=== PATIENT | female | born 2000 ===

== ENCOUNTER 2020-01-10 19:19 | Emergency (ER) | payer OTHER, SELFPAY ==
[2020-01-10 20:11] VITALS: BP 113/66; PULSE 78; RESP 18; TEMP 36.7; O2SAT 100; BMI 24.7
== END 2020-01-11 01:01 | disposition left against medical advice (07) ==
LOC: HO.ED 01-11 00:48
PROVIDERS: Emergency Provider Emergency Medicine; PCP Pediatrics
DX: R10.9 Unspecified abdominal pain (principal)
CPT/HCPCS: 99282; 99283

== ENCOUNTER 2020-04-13 19:50 | Emergency (ER) | payer OTHER, SELFPAY ==
[2020-04-13 20:28] VITALS: BP 124/78; PULSE 76; RESP 16; TEMP 37.2; O2SAT 99; BMI 35.6
[2020-04-13 21:13] LABS: Glucose Urine UA NEG (NEG); Leukocyte Esterase Urine NEG (NEG); Nitrite Urine NEG (NEG); PH 5.5 (5.0-8.0); Specific Gravity - Urine >= 1.030 (1.005-1.025); Urine Blood 3+ (NEG); Urine Ketones NEG (NEG); Urine Protein NEG (NEG-TRACE)
[2020-04-13 21:15] LABS: Appearance Urine CLEAR; Color Urine YELLOW; UPreg QC Valid YES; Urine Pregnancy NEGATIVE (NEGATIVE)
[2020-04-13 21:20] LABS: Bacteria Urine TRACE /LPF; Squamous Epithelial Cell Urine 1+ /LPF; WBC Urine 0 /HPF (0-4)
--- NOTE | 2020-04-13 22:58 | ED.FEMALEGU ---
HPI - Female Genitourinary General Chief complaint: Abdominal Pain Stated complaint: abd pain Time Seen by Provider: 04/13/20 22:52 Source: patient Mode of arrival: ambulatory Limitations: no limitations History of Present Illness HPI Narrative: 19 yo female has had 3 days of lower abdominal cramping, came off OCPs 4 months ago has been irregular since but had significant bleeding on Friday and now has lower abdominal cramping some spotting - this has never happened before, she is not sure if she is , c/o some headaches and low grade temps as well MD elicited complaint: vaginal bleeding and pelvic pain Pertinent past history: other (took herself off OCPs 4 months ago) Onset (ago): day(s) (3) Location of symptoms: pelvis Severity: moderate Quality of pain: cramping Consistency: intermittent Vaginal discharge: none Vaginal bleeding: heavy (on Friday and today very light) Exacerbating factors: none Relieving factors: none Associated symptoms: headaches and loss of appetite Treatment prior to arrival: none Sexual activity: Yes Possible : unsure if Related Data Previous Rx's Medication Instructions Recorded ibuprofen 600 mg PO Q6H PRN #30 tab 04/14/20 ondansetron 4 mg PO Q8H PRN #20 tab 04/14/20 Allergies Allergy/AdvReac Type Severity Reaction Status Date / Time No Known Allergies Allergy Unverified 12/23/19 17:26 Review of Systems Review of Systems: Constitutional : No Fever, No Chills ENT/Mouth : No sore throat, No Rhinorrhea Eyes: No Eye Pain, No Redness Cardiovascular : No Chest Pain, No SOB Respiratory : No Cough, No Sputum, No Wheezing Gastrointestinal : positive Nausea, No Vomiting, No Diarrhea, no abdominal pain, Genitourinary : positive irregular bleeding, No Dysuria, No Urinary Frequency, positive pelvic pain Musculoskeletal : No Myalgias Skin : No rash Neuro : No Weakness, pos Headache Psych : No Anxiety/Panic, No Depression Heme/Lymph: No bruising, No Lymphadenopathy Endocrine : No Polyuria, No Polydipsia All other systems reviewed and are negative [facility] Past Medical History Attestation statement: The following information was validated with the patient. Medical History Asthma Social History Social History (Updated 04/13/20 @ 23:00 by RICK De Leon Smoking Status: Never smoker Use of substances other than those prescribed or required for medical reasons: No Advance Directives: No Advance Directives Information Provided: Yes Physical Exam Vital Signs: Vital Signs: Last Vital Signs Temp 99 F 04/13/20 20:28 Pulse 76 04/13/20 20:28 Resp 16 04/13/20 20:28 Pulse Ox 99 04/13/20 20:28 Body Mass Index 35.6 Appearance: Alert. Oriented X3. No acute distress. Eyes: Pupils equal, round and reactive to light. ENT: Pharynx normal. Neck: Normal inspection. Neck supple. CVS: Normal heart rate and rhythm. Pulses normal. Respiratory: No respiratory distress. Breath sounds normal. Abdomen: Soft and mild suprapubic ttp Skin: Skin warm and dry. Normal skin color. Normal skin turgor. Extremities: No lower extremity edema. No calf ttp Neuro: Oriented X 3. No motor deficit. No sensory deficit. MDM - Female Genitourinary MDM Narrative Medical decision making narrative: 19 yo female with asthma took herself off OCPs 4 months ago - here with heavy episode of vaginal bleeding on Friday that has since resolved but now c/o lower abdominal cramping worried she might be , no hx of ovarian cysts, at this time will obtain basic labs, quant, USto evaluate ovaries Lab Data Result diagrams: 04/13/20 23:53 04/13/20 23:53 Labs: Lab Results 04/13/20 04/13/20 04/13/20 Range/Units 20:58 20:58 23:53 WBC 8.6 (4.8-10.8) X10*3/uL RBC 4.45 (4.20-5.50) X10*6/uL Hgb 12.7 (12.0-16.0) g/dl Hct 39.6 (37-47) % MCV 89.0 (80-98) fL MCH 28.5 (27.0-33.0) pg MCHC 32.1 (31.0-35.0) g/dl RDW 12.5 (11.0-16.0) % Plt Count 295 (160-400) X10*3/uL MPV 10.1 (9.4-12.3) fL Immature Gran % (Auto) 0.6 H (0.0-0.4) % Neut % (Auto) 65.6 (45-73) % Lymph % (Auto) 22.9 (20-40) % [place] % (Auto) 6.3 (2-11) % Eos % (Auto) 4.1 H (0-4) % Baso % (Auto) 0.5 (0-2) % Lymph # (Auto) 2.0 (1.2-4.9) X10*3/uL [place] # (Auto) 0.5 (0.1-1.2) X10*3/uL Eos # (Auto) 0.4 (0.0-0.4) X10*3/uL Baso # (Auto) 0.0 (0.0-0.2) X10*3/uL Abs Immat Gran (auto) 0.05 H (0.00-0.03) X10*3/uL Absolute Neuts (auto) 5.6 (2.0-8.3) X10*3/uL Absolute Nucleated RBC 0.000 (0.0-0.012) X10*3/uL Nucleated RBC % (auto) 0.0 (0.0-0.2) /100WBC Sodium (135-145) mmol/L Potassium (3.3-5.1) mmol/l Chloride (96-108) mmol/L Carbon Dioxide (22-29) mmol/L Anion Gap (12-20) BUN (9-16) mg/dL Creatinine (0.5-1.4) mg/dL Estim Creat Clear Calc Estimated GFR Random Glucose (60-115) mg/dL Calcium (8.4-10.2) mg/dL Total Bilirubin (0.0-1.0) mg/dL Direct Bilirubin (0.0-0.5) mg/dL AST (5-31) U/L ALT (0-31) U/L Alkaline Phosphatase (39-117) U/L Total Protein (6.5-8.0) g/dL Albumin (3.5-5.0) g/dL Lipase (8-78) U/L Urine Color YELLOW Urine Appearance CLEAR Urine pH 5.5 (5.0-8.0) Ur Specific [place] >= 1.030 H (1.005-1.025) Urine Protein NEG (NEG-TRACE) MG/DL Urine Glucose (UA) NEG (NEG) MG/DL Urine Ketones NEG (NEG) MG/DL Urine Blood 3+ H (NEG) Urine Nitrite NEG (NEG) Ur Leukocyte Esterase NEG (NEG) Urine RBC 5-9 H (0) /HPF Urine WBC 0 (0-4) /HPF Ur Squamous Epith Cells 1+ /LPF Urine Bacteria TRACE /LPF Urine Test NEGATIVE (NEGATIVE) 04/13/20 Range/Units 23:53 WBC (4.8-10.8) X10*3/uL RBC (4.20-5.50) X10*6/uL Hgb (12.0-16.0) g/dl Hct (37-47) % MCV (80-98) fL MCH (27.0-33.0) pg MCHC (31.0-35.0) g/dl RDW (11.0-16.0) % Plt Count (160-400) X10*3/uL MPV (9.4-12.3) fL Immature Gran % (Auto) (0.0-0.4) % Neut % (Auto) (45-73) % Lymph % (Auto) (20-40) % [place] % (Auto) (2-11) % Eos % (Auto) (0-4) % Baso % (Auto) (0-2) % Lymph # (Auto) (1.2-4.9) X10*3/uL [place] # (Auto) (0.1-1.2) X10*3/uL Eos # (Auto) (0.0-0.4) X10*3/uL Baso # (Auto) (0.0-0.2) X10*3/uL Abs Immat Gran (auto) (0.00-0.03) X10*3/uL Absolute Neuts (auto) (2.0-8.3) X10*3/uL Absolute Nucleated RBC (0.0-0.012) X10*3/uL Nucleated RBC % (auto) (0.0-0.2) /100WBC Sodium 140 (135-145) mmol/L Potassium 3.9 (3.3-5.1) mmol/l Chloride 105 (96-108) mmol/L Carbon Dioxide 25 (22-29) mmol/L Anion Gap 14 (12-20) BUN 10 (9-16) mg/dL Creatinine 0.72 (0.5-1.4) mg/dL Estim Creat Clear Calc 114.8 Estimated GFR > 60 Random Glucose 80 (60-115) mg/dL Calcium 9.0 (8.4-10.2) mg/dL Total Bilirubin 0.2 (0.0-1.0) mg/dL Direct Bilirubin < 0.2 (0.0-0.5) mg/dL AST 23 (5-31) U/L ALT 23 (0-31) U/L Alkaline Phosphatase 53 (39-117) U/L Total Protein 7.2 (6.5-8.0) g/dL Albumin 4.3 (3.5-5.0) g/dL Lipase 15 (8-78) U/L Urine Color Urine Appearance Urine pH (5.0-8.0) Ur Specific [place] (1.005-1.025) Urine Protein (NEG-TRACE) MG/DL Urine Glucose (UA) (NEG) MG/DL Urine Ketones (NEG) MG/DL Urine Blood (NEG) Urine Nitrite (NEG) Ur Leukocyte Esterase (NEG) Urine RBC (0) /HPF Urine WBC (0-4) /HPF Ur Squamous Epith Cells /LPF Urine Bacteria /LPF Urine Test (NEGATIVE) Discharge Plan Discharge Clinical Impression: Ovarian cyst, Irregular bleeding Patient Disposition: Home, Self-Care Instructions: Ovarian Cyst (ED) Additional Instructions: return to ED for any worsening symptoms or concerns Prescriptions: New ibuprofen 600 mg tablet 600 mg PO Q6H PRN (Reason: pain) Qty: 30 RF: 0 ondansetron 4 mg tablet,disintegrating 4 mg PO Q8H PRN (Reason: nausea and vomiting) Qty: 20 RF: 0 Referrals: Dayna Juarez MD [Primary Care Provider] - 2 days (if not better) Stand Alone Forms: Work/School Release
[2020-04-14] VITALS: BP 120/74; PULSE 16; O2SAT 98
--- NOTE | 2020-04-14 | US_ITS ---
EXAMINATION: ULTRASOUND OF THE PELVIS CLINICAL INFORMATION: Pain. Irregular bleeding.. COMPARISON: None. TECHNIQUE: Transabdominal and transvaginal pelvic ultrasound. Doppler evaluation with spectral analysis was performed. A transvaginal study was performed in addition to the transabdominal study which did not yield an adequate examination of the uterus and ovaries due to superimposed distended gas-filled loops of bowel. FINDINGS: The uterus is normal in size and appearance, measuring 6.7 x 3.6 x 5.1 cm longitudinally, anteroposteriorly and transversely. The endometrial stripe thickness is normal, measuring 0.7 cm in thickness. No focal myometrial mass is seen. The ovaries bilaterally are visualized and appear normal, with the right ovary measuring 3.7 x 1.8 x 2.6 cm and the left ovary measuring 4.5 x 2.6 x 3.5 cm. There are normal arterial and venous spectral waveforms bilaterally. Possible corpus luteal or hemorrhagic cyst in the left ovary measuring up to 2.8 x 1.1 x 1.3 cm. Small amount of pelvic free fluid. US/US pelvic complete IMPRESSION: Normal appearance of the uterus. Small volume pelvic free fluid. Corpus luteal versus hemorrhagic cyst within the left ovary.
--- NOTE | 2020-04-14 | US_ITS ---
EXAMINATION: ULTRASOUND OF THE PELVIS CLINICAL INFORMATION: Pain. Irregular bleeding.. COMPARISON: None. TECHNIQUE: Transabdominal and transvaginal pelvic ultrasound. Doppler evaluation with spectral analysis was performed. A transvaginal study was performed in addition to the transabdominal study which did not yield an adequate examination of the uterus and ovaries due to superimposed distended gas-filled loops of bowel. FINDINGS: The uterus is normal in size and appearance, measuring 6.7 x 3.6 x 5.1 cm longitudinally, anteroposteriorly and transversely. The endometrial stripe thickness is normal, measuring 0.7 cm in thickness. No focal myometrial mass is seen. The ovaries bilaterally are visualized and appear normal, with the right ovary measuring 3.7 x 1.8 x 2.6 cm and the left ovary measuring 4.5 x 2.6 x 3.5 cm. There are normal arterial and venous spectral waveforms bilaterally. Possible corpus luteal or hemorrhagic cyst in the left ovary measuring up to 2.8 x 1.1 x 1.3 cm. Small amount of pelvic free fluid. US/US transvaginal IMPRESSION: Normal appearance of the uterus. Small volume pelvic free fluid. Corpus luteal versus hemorrhagic cyst within the left ovary.
--- NOTE | 2020-04-14 00:05 | PC.NURSE ---
PT RESTING IN STRETCHER WITH C/O HEAD PAIN AND LOWER ABD PAIN AND NAUSEATED. PT ALERT, RESPIRATIONS EASY, N/L. SKIN W/D. IN ROOM FOR EVAL. HL PLACED TO LAC, LABS DRAWN TO LAB. COVID TEST OBTAINED. NS UP AND RUNNING W/O. SITE INTACT. PT WILL BE MEDICATED WHEN RETURNING FROM U/S. WILL CONTINUE TO MONITOR PT.
[2020-04-14 00:16] LABS: Basophils Percent Auto 0.5 % (0-2); Eosinophils Absolute Auto 0.4 X10*3/uL (0.0-0.4); Eosinophils Percent Auto 4.1 % (0-4); Hematocrit 39.6 % (37-47); Hemoglobin 12.7 g/dl (12.0-16.0); Imm Gran Abs Auto 0.05 X10*3/uL (0.00-0.03); Imm Gran Pct Auto 0.6 % (0.0-0.4); Lymphocytes Percent Auto 22.9 % (20-40); MANUAL DIFF FLAG NO; Mean Corpuscular HGB Conc 32.1 g/dl (31.0-35.0); Mean Corpuscular Hemoglobin 28.5 pg (27.0-33.0); Mean Platelet Volume 10.1 fL (9.4-12.3); Monocytes Absolute Auto 0.5 X10*3/uL (0.1-1.2); Monocytes Percent Auto 6.3 % (2-11); Neutrophils Absolute Auto 5.6 X10*3/uL (2.0-8.3); Neutrophils Percent Auto 65.6 % (45-73); Platelet Count 295 X10*3/uL (160-400); Red Blood Count 4.45 X10*6/uL (4.20-5.50); Red Cell Distribution Width 12.5 % (11.0-16.0); White Blood Count 8.6 X10*3/uL (4.8-10.8)
[2020-04-14] MEDS: ondansetron HCL 4 MG/2 ML VIAL IVPUSH (00:44)
[2020-04-14] MEDS: 0.9 % Sodium Chloride 1,000 ML 999 ML IVCONT (00:45)
[2020-04-14 01:08] LABS: Alanine Aminotransferase 23 U/L (0-31); Albumin Level 4.3 g/dL (3.5-5.0); Alkaline Phosphatase 53 U/L (39-117); Anion Gap 14 (12-20); Aspartate Amino Transferase 23 U/L (5-31); Bilirubin Direct < 0.2 mg/dL (0.0-0.5); Bilirubin Total 0.2 mg/dL (0.0-1.0); Blood Urea Nitrogen 10 mg/dL (9-16); Carbon Dioxide 25 mmol/L (22-29); Chloride 105 mmol/L (96-108); Creatinine Clr Calc Pharmacy 114.8; Estimated Glomerular Filt Rate > 60; Glucose Random 80 mg/dL (60-115); Lipase 15 U/L (8-78); Potassium 3.9 mmol/l (3.3-5.1); Sodium 140 mmol/L (135-145); Total Protein 7.2 g/dL (6.5-8.0)
[2020-04-14 01:33] LABS: Magnesium 1.9 mg/dL (1.6-2.6)
[2020-04-14 01:38] LABS: HCG Quantitative < 2 mIU/mL
[2020-04-14 01:49] LABS: Influenza A PCR NEGATIVE (Negative); Influenza B PCR NEGATIVE (Negative); Resp Syncy Virus RNA Qual PCR NEGATIVE (Negative); SARS COV2 PCR INHOUSE NEGATIVE (Negative)
== END 2020-04-14 01:28 | disposition home or self-care (01) ==
PROVIDERS: Emergency Provider Emergency Medicine; PCP Pediatrics
DX: N92.6 Irregular menstruation, unspecified (principal); N83.12 Corpus luteum cyst of left ovary; Z20.828 Contact with and (suspected) exposure to other viral communicable diseases
CPT/HCPCS: 0241U; 36415; 76830; 76856; 80048; 80076; 81001; 81025; 83690; 83735; 84702; 85025; 96361; 96374; 99284; J2405

== ENCOUNTER 2020-06-23 14:23 | Emergency (ER) | payer OTHER, SELFPAY ==
--- NOTE | ~2020-06-23 | US_ITS ---
EXAMINATION: PELVIC ULTRASOUND WITH DOPPLER CLINICAL INFORMATION: Left pelvic pain COMPARISON: Pelvic ultrasound 04/14/2020 TECHNIQUE: Both transabdominal endovaginal scanning was performed. Color flow Doppler imaging was also utilized. FINDINGS: An anteverted uterus measuring 9.8 x 3.7 x 4.9 cm for a volume of 93 mL is present and normal in appearance. A normal 2 mm endometrium is seen. No uterine masses are present. The right ovary measures 3.9 x 2.7 x 2.3 cm for a volume of 12.7 mL and appears normal. Follicular cysts are present. Left ovary measures 2.9 x 2.1 x 2.1 cm for a volume of 6.7 mL and appears normal. Follicular cysts are present. Trace fluid is present in the cul-de-sac. Doppler exam of both ovaries demonstrates normal arterial and venous flow. US/US pelvic ovarian doppler IMPRESSION: No significant abnormality is seen.
--- NOTE | ~2020-06-23 | US_ITS ---
EXAMINATION: PELVIC ULTRASOUND WITH DOPPLER CLINICAL INFORMATION: Left pelvic pain COMPARISON: Pelvic ultrasound 04/14/2020 TECHNIQUE: Both transabdominal endovaginal scanning was performed. Color flow Doppler imaging was also utilized. FINDINGS: An anteverted uterus measuring 9.8 x 3.7 x 4.9 cm for a volume of 93 mL is present and normal in appearance. A normal 2 mm endometrium is seen. No uterine masses are present. The right ovary measures 3.9 x 2.7 x 2.3 cm for a volume of 12.7 mL and appears normal. Follicular cysts are present. Left ovary measures 2.9 x 2.1 x 2.1 cm for a volume of 6.7 mL and appears normal. Follicular cysts are present. Trace fluid is present in the cul-de-sac. Doppler exam of both ovaries demonstrates normal arterial and venous flow. US/US pelvic complete IMPRESSION: No significant abnormality is seen.
--- NOTE | ~2020-06-23 | US_ITS ---
EXAMINATION: PELVIC ULTRASOUND WITH DOPPLER CLINICAL INFORMATION: Left pelvic pain COMPARISON: Pelvic ultrasound 04/14/2020 TECHNIQUE: Both transabdominal endovaginal scanning was performed. Color flow Doppler imaging was also utilized. FINDINGS: An anteverted uterus measuring 9.8 x 3.7 x 4.9 cm for a volume of 93 mL is present and normal in appearance. A normal 2 mm endometrium is seen. No uterine masses are present. The right ovary measures 3.9 x 2.7 x 2.3 cm for a volume of 12.7 mL and appears normal. Follicular cysts are present. Left ovary measures 2.9 x 2.1 x 2.1 cm for a volume of 6.7 mL and appears normal. Follicular cysts are present. Trace fluid is present in the cul-de-sac. Doppler exam of both ovaries demonstrates normal arterial and venous flow. US/US transvaginal IMPRESSION: No significant abnormality is seen.
[2020-06-23 14:28] VITALS: BP 96/67; PULSE 89; RESP 16; TEMP 36.8; O2SAT 96; BMI 31.5
[2020-06-23 15:52] LABS: MANUAL DIFF FLAG NO
[2020-06-23 15:55] LABS: Basophils Absolute Auto 0.1 X10*3/uL (0.0-0.2); Basophils Percent Auto 0.6 % (0-2); Eosinophils Absolute Auto 0.3 X10*3/uL (0.0-0.4); Eosinophils Percent Auto 2.7 % (0-4); Hematocrit 40.2 % (37-47); Hemoglobin 13.2 g/dl (12.0-16.0); Imm Gran Abs Auto 0.02 X10*3/uL (0.00-0.03); Imm Gran Pct Auto 0.2 % (0.0-0.4); Lymphocytes Absolute Auto 1.5 X10*3/uL (1.2-4.9); Lymphocytes Percent Auto 14.6 % (20-40); Mean Corpuscular HGB Conc 32.8 g/dl (31.0-35.0); Mean Corpuscular Hemoglobin 28.8 pg (27.0-33.0); Mean Corpuscular Volume 87.8 fL (80-98); Mean Platelet Volume 10.1 fL (9.4-12.3); Monocytes Absolute Auto 0.5 X10*3/uL (0.1-1.2); Monocytes Percent Auto 5.3 % (2-11); Neutrophils Absolute Auto 7.7 X10*3/uL (2.0-8.3); Neutrophils Percent Auto 76.6 % (45-73); Platelet Count 329 X10*3/uL (160-400); Red Blood Count 4.58 X10*6/uL (4.20-5.50); Red Cell Distribution Width 12.1 % (11.0-16.0)
[2020-06-23 16:18] LABS: Alanine Aminotransferase 15 U/L (0-31); Albumin Level 4.4 g/dL (3.5-5.0); Alkaline Phosphatase 62 U/L (39-117); Anion Gap 11 (12-20); Aspartate Amino Transferase 17 U/L (5-31); Bilirubin Total 0.7 mg/dL (0.0-1.0); Blood Urea Nitrogen 13 mg/dL (9-16); Calcium 9.6 mg/dL (8.4-10.2); Carbon Dioxide 29 mmol/L (22-29); Chloride 105 mmol/L (96-108); Creatinine Clr Calc Pharmacy 106.1; Estimated Glomerular Filt Rate > 60; Glucose Random 79 mg/dL (60-115); Potassium 4.2 mmol/L (3.3-5.1); Sodium 141 mmol/L (135-145); Total Protein 7.2 g/dL (6.5-8.0)
[2020-06-23 18:00] VITALS: BP 115/62; PULSE 73; RESP 16; TEMP 37.2; O2SAT 99
[2020-06-23 18:44] LABS: Glucose Urine UA NEG (NEG); Leukocyte Esterase Urine NEG (NEG); Nitrite Urine NEG (NEG); Specific Gravity - Urine >= 1.030 (1.005-1.025); Urine Blood 3+ (NEG); Urine Ketones 5 MG/DL (NEG); Urine Protein NEG (NEG-TRACE)
[2020-06-23 18:46] LABS: Appearance Urine CLEAR; Color Urine YELLOW; Urine Pregnancy NEGATIVE (NEGATIVE)
[2020-06-23 18:47] LABS: UPreg QC Valid YES
[2020-06-23 18:53] LABS: COVID-19 Test Negative (Negative); IDNOW Serial# 9DD0AD1C
[2020-06-23 19:09] LABS: Mucus Urine 1+ /LPF; Squamous Epithelial Cell Urine 1+ /LPF
[2020-06-23] MEDS: Lidocaine HCl Viscous 2 % 15 ML SOLUTION 10 ML MUCOUS MEM (19:23)
[2020-06-23] MEDS: Magnesium Hydrox/Alum Hydrox 30 ML ORAL.SUSP PO (19:23)
--- NOTE | 2020-06-23 19:26 | PC.NURSE ---
Addendum entered by Huong Massey 06/23/20 19:28: ADDENDUM-PT AWAITING US AWARE OF UPDATED PLAN OF CARE. Original Note: REPORT TAKEN FROM VU Villalta RN FIRST CONTACT WITH PT. SITTING UP IN BED A&Ox4 SKIN PWD RESPIRATIONS EVEN UNLABORED. REPORTS UPPER ABD PAIN 9/10 ACHING IN NATURE. N/V x3 DAYS. MEDICATED PER JUN. AWAITING MD REEVAL. AWARE OF PLAN OF CARE.
[2020-06-23 20:50] VITALS: BP 108/61; PULSE 69; RESP 16; TEMP 36.9; O2SAT 99
--- NOTE | 2020-06-23 21:26 | ED.ABDPAIN ---
HPI - Abdominal Pain General Chief Complaint: Abdominal Pain Stated Complaint: vomiting, abd pain, sore throat Time Seen by Provider: 06/23/20 18:10 Source: patient Limitations: no limitations History of Present Illness HPI narrative: 19-year-old female with history of asthma and prior history of ovarian cyst who presents today with complaint of 3 days of nausea and vomiting with couple episodes of diarrhea also complaining of sore throat and abdominal pain in epigastrium and sometimes in the lower abdomen. States she just finished her menstrual cycle. There is no vaginal bleeding, discharge or dysuria. Last bowel movement was this morning. And reports she was here in April and was told she had a left-sided ovarian cyst. 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 MD elicited complaint: abdominal pain Pertinent past history: none Onset (ago): day(s) (3) Pain Consistency: intermittent Location: diffuse Severity: moderate Quality: cramping and aching Radiation: LLQ and epigastric Migration to: no migration Exacerbating factors: eating Relieving factors: rest Associated symptoms: nausea, vomiting, diarrhea and other (Sore throat) Related Data Previous Rx's Medication Instructions Recorded ibuprofen 600 mg PO Q6H PRN #30 tab 04/14/20 ondansetron 4 mg PO Q8H PRN #20 tab 04/14/20 ondansetron HCl [Zofran] 4 mg PO Q8H PRN #10 tab 06/23/20 Allergies Allergy/AdvReac Type Severity Reaction Status Date / Time No Known Allergies Allergy Unverified 12/23/19 17:26 Review of Systems Review of Systems Constitutional: No Weight loss, No Fever, No Chills, No Night Sweats, No Fatigue, No Malaise ENT/Mouth: No Hearing loss, No Ear Pain, No Nasal Congestion, No Sinus Pain, No Hoarseness, + sore throat, No Rhinorrhea, No Swallowing Difficulty Eyes: No Eye Pain, No Swelling, No Redness, No Foreign Body, No Discharge, No Vision Changes Cardiovascular: No Chest Pain, No SOB, No Dyspnea on Exertion, No Orthopnea, No Edema, No Palpitations Respiratory: No Cough, No Sputum, No Wheezing, No Dyspnea Gastrointestinal: as noted per HPI, No Hematochezia, No Melena Genitourinary: no irregular bleeding, No Dysuria, No Urinary Frequency, No Hematuria, No Urinary Incontinence, No Urgency, No Flank Pain, No Urinary Flow Changes, No Hesitancy Musculoskeletal: No joint pain, No Myalgias, No Joint Swelling Skin: No Skin Lesions, No rash Neuro: No Weakness, No Numbness, No Paresthesias, No Loss of Consciousness, No Dizziness, No Headache Psych: No Social Issues Heme/Lymph: No Bruising, No Bleeding,No Lymphadenopathy Endocrine: No Polyuria, No Polydipsia, No Temperature Intolerance Yes all other systems are reviewed and are negative Physical Exam Vital Signs: Vital Signs: Last Vital Signs Temp 98.4 F 06/23/20 20:50 Pulse 69 06/23/20 20:50 Resp 16 06/23/20 20:50 BP 108/61 06/23/20 20:50 Pulse Ox 99 06/23/20 20:50 Body Mass Index 31.5 Reviewed Const: General: cooperative and healthy appearing; No acute distress or intoxicated appearing Nutritional Appearance: average body habitus Orientation/consciousness: patient oriented x3 HENMT: Head: Yes normal to inspection Ears: hearing grossly normal bilaterally Eyes: General: appearance normal, both eyes and all related structures Visual Alfaro: normal visual alfaro by confrontation Neck: Neck: Yes normal visual inspection, No positive Brudzinski's sign, No positive Kernig's sign and No tender Thyroid: Thyroid normal Chest: Chest palpation & inspection: normal inspection of the chest Resp: Effort & Inspection: normal respiratory effort Auscultation: clear to auscultation bilaterally Cardio: Jugular venous distension: no JVD Rhythm: regular rhythm Heart sounds: S1 normal heart sound present and S2 normal heart sound present GI: Inspection: Yes normal to inspection Palpation (GI): Soft to palpation, Tenderness to palpation present (GI) in the epigastrum, no guarding and not rigid Percussion: Yes normal to percussion Auscultation: normal bowel sounds : General: Yes no CVA tenderness Back/Spine/Pelvis: Back: no CVA tenderness Skin: General skin exam: no rashes or lesions noted Neuro: General: patient oriented x3 Extrem: General: Yes normal to inspection MDM - Abdominal Pain MDM Narrative Medical decision making narrative: Otherwise healthy 19-year-old female nonspecific abdominal pain with associated nausea vomiting diarrhea consistent with gastroenteritis/viral syndrome. Labs overall reassuring UA negative, negative repeat ultrasound of the pelvis done given the previous showed ovarian cyst versus rupture this was negative as well. She felt much better after GI cocktail tolerating p.o. intake well. Will discharge home with precaution return follow-up instructions. She feels comfortable plan. She is thankful stable for discharge. Differential Diagnosis Differential diagnosis: Likely abdominal pain, gastroenteritis, gastritis and ovarian cyst; Unlikely aortic dissection, acute appendicitis, bowel perforation, calculus of kidney, constipation, diverticulitis, endometriosis, pancreatitis and small bowel obstruction Medical Records Attestation: I reviewed the patient's medical records. Lab Data Attestation: I reviewed the patient's lab results. Result diagrams: 06/23/20 15:40 06/23/20 15:40 Labs: Lab Results 06/23/20 06/23/20 06/23/20 Range/Units 15:40 15:40 15:40 WBC 10.0 (4.8-10.8) X10*3/uL RBC 4.58 (4.20-5.50) X10*6/uL Hgb 13.2 (12.0-16.0) g/dl Hct 40.2 (37-47) % MCV 87.8 (80-98) fL MCH 28.8 (27.0-33.0) pg MCHC 32.8 (31.0-35.0) g/dl RDW 12.1 (11.0-16.0) % Plt Count 329 (160-400) X10*3/uL MPV 10.1 (9.4-12.3) fL Immature Gran % (Auto) 0.2 (0.0-0.4) % Neut % (Auto) 76.6 H (45-73) % Lymph % (Auto) 14.6 L (20-40) % [place] % (Auto) 5.3 (2-11) % Eos % (Auto) 2.7 (0-4) % Baso % (Auto) 0.6 (0-2) % Lymph # (Auto) 1.5 (1.2-4.9) X10*3/uL [place] # (Auto) 0.5 (0.1-1.2) X10*3/uL Eos # (Auto) 0.3 (0.0-0.4) X10*3/uL Baso # (Auto) 0.1 (0.0-0.2) X10*3/uL Abs Immat Gran (auto) 0.02 (0.00-0.03) X10*3/uL Absolute Neuts (auto) 7.7 (2.0-8.3) X10*3/uL Absolute Nucleated RBC 0.000 (0.0-0.012) X10*3/uL Nucleated RBC % (auto) 0.0 (0.0-0.2) /100WBC Hold Blue Top SEE NOTE Sodium 141 (135-145) mmol/L Potassium 4.2 (3.3-5.1) mmol/L Chloride 105 (96-108) mmol/L Carbon Dioxide 29 (22-29) mmol/L Anion Gap 11 L (12-20) BUN 13 (9-16) mg/dL Creatinine 0.73 (0.5-1.4) mg/dL Estim Creat Clear Calc 106.1 Estimated GFR > 60 Random Glucose 79 (60-115) mg/dL Calcium 9.6 D (8.4-10.2) mg/dL Total Bilirubin 0.7 (0.0-1.0) mg/dL AST 17 (5-31) U/L ALT 15 (0-31) U/L Alkaline Phosphatase 62 (39-117) U/L Total Protein 7.2 (6.5-8.0) g/dL Albumin 4.4 (3.5-5.0) g/dL Urine Color Urine Appearance Urine pH (5.0-8.0) Ur Specific [place] (1.005-1.025) Urine Protein (NEG-TRACE) MG/DL Urine Glucose (UA) (NEG) MG/DL Urine Ketones (NEG) MG/DL Urine Blood (NEG) Urine Nitrite (NEG) Ur Leukocyte Esterase (NEG) Urine RBC (0) /HPF Urine WBC (0-4) /HPF Ur Squamous Epith Cells /LPF Urine Bacteria /LPF Urine Mucus /LPF Urine Test (NEGATIVE) COVID-19 (RAVI) (Negative) COVID-19 Clin Com 06/23/20 06/23/20 06/23/20 Range/Units 18:28 18:28 18:28 WBC (4.8-10.8) X10*3/uL RBC (4.20-5.50) X10*6/uL Hgb (12.0-16.0) g/dl Hct (37-47) % MCV (80-98) fL MCH (27.0-33.0) pg MCHC (31.0-35.0) g/dl RDW (11.0-16.0) % Plt Count (160-400) X10*3/uL MPV (9.4-12.3) fL Immature Gran % (Auto) (0.0-0.4) % Neut % (Auto) (45-73) % Lymph % (Auto) (20-40) % [place] % (Auto) (2-11) % Eos % (Auto) (0-4) % Baso % (Auto) (0-2) % Lymph # (Auto) (1.2-4.9) X10*3/uL [place] # (Auto) (0.1-1.2) X10*3/uL Eos # (Auto) (0.0-0.4) X10*3/uL Baso # (Auto) (0.0-0.2) X10*3/uL Abs Immat Gran (auto) (0.00-0.03) X10*3/uL Absolute Neuts (auto) (2.0-8.3) X10*3/uL Absolute Nucleated RBC (0.0-0.012) X10*3/uL Nucleated RBC % (auto) (0.0-0.2) /100WBC Hold Blue Top Sodium (135-145) mmol/L Potassium (3.3-5.1) mmol/L Chloride (96-108) mmol/L Carbon Dioxide (22-29) mmol/L Anion Gap (12-20) BUN (9-16) mg/dL Creatinine (0.5-1.4) mg/dL Estim Creat Clear Calc Estimated GFR Random Glucose (60-115) mg/dL Calcium (8.4-10.2) mg/dL Total Bilirubin (0.0-1.0) mg/dL AST (5-31) U/L ALT (0-31) U/L Alkaline Phosphatase (39-117) U/L Total Protein (6.5-8.0) g/dL Albumin (3.5-5.0) g/dL Urine Color YELLOW Urine Appearance CLEAR Urine pH 6.0 (5.0-8.0) Ur Specific [place] >= 1.030 H (1.005-1.025) Urine Protein NEG (NEG-TRACE) MG/DL Urine Glucose (UA) NEG (NEG) MG/DL Urine Ketones 5 (NEG) MG/DL Urine Blood 3+ H (NEG) Urine Nitrite NEG (NEG) Ur Leukocyte Esterase NEG (NEG) Urine RBC 15-29 H (0) /HPF Urine WBC 1-4 (0-4) /HPF Ur Squamous Epith Cells 1+ /LPF Urine Bacteria NONE /LPF Urine Mucus 1+ /LPF Urine Test NEGATIVE (NEGATIVE) COVID-19 (RAVI) Negative (Negative) COVID-19 Clin Com See Note Discharge Plan Discharge Clinical Impression: Gastroenteritis, Acute viral syndrome Abdominal pain Qualifiers: Abdominal location: epigastric Qualified Code(s): R10.13 - Epigastric pain Patient Disposition: Home, Self-Care Instructions: Acute Nausea and Vomiting (ED), Abdominal Pain (ED) Additional Instructions: Your blood work was overall reassuring today Year's COVID test was negative Strep test was negative The repeat ultrasound of the pelvis did not show any evidence of any complications with her pelvic anatomy specifically no cyst or ovarian torsion. Supportive care for home as discussed Return if any concerns or worsening symptoms Schedule a follow up with her primary care doctor in next 3-7 days Thank you Prescriptions: New ondansetron HCl [Zofran] 4 mg tablet 4 mg PO Q8H PRN (Reason: nausea and vomiting) Qty: 10 RF: 0 No Action ibuprofen 600 mg tablet 600 mg PO Q6H PRN (Reason: pain) Qty: 30 RF: 0 ondansetron 4 mg tablet,disintegrating 4 mg PO Q8H PRN (Reason: nausea and vomiting) Qty: 20 RF: 0 Referrals: Dayna Juarez MD [Primary Care Provider] - [facility] Past Medical History Medical History Asthma Social History Social History (Updated 04/13/20 @ 23:00 by Kristine Doss DO) Alcohol intake: never Smoking Status: Never smoker Use of substances other than those prescribed or required for medical reasons: No Advance Directives: No Advance Directives Information Provided: No
== END 2020-06-23 21:42 | disposition home or self-care (01) ==
PROVIDERS: Nurse Practitioner Primary Care; Emergency Provider Internal Medicine; PCP Pediatrics
DX: K52.9 Noninfective gastroenteritis and colitis, unspecified (principal); B34.9 Viral infection, unspecified; Z20.822 Contact with and (suspected) exposure to COVID-19; J45.909 Unspecified asthma, uncomplicated
CPT/HCPCS: 36415; 76830; 76856; 80053; 81001; 81025; 85025; 87071; 87635; 87880; 93975; 99284

== ENCOUNTER 2020-11-18 22:50 | Emergency (ER) | payer OTHER, SELFPAY ==
[2020-11-18 23:04] VITALS: BP 119/65; PULSE 79; RESP 16; TEMP 37.2; O2SAT 98; BMI 32.3
--- NOTE | 2020-11-19 00:35 | ED.SKABFB ---
HPI - Skin/Abscess/Foreign Bdy General Chief complaint: Skin/Abscess/Foreign Body Stated complaint: Rash Time Seen by Provider: 11/19/20 00:35 Source: patient Mode of arrival: ambulatory Limitations: no limitations History of Present Illness HPI narrative: States history of psoriasis noted a rash to the dorsum of the foot bilaterally 2 days ago and also some on the hand she was evaluated at urgent care given methods of ointment which made it worse. She otherwise denies any fever, chills, recent antibiotic use, travel, sick contacts. MD complaint: rash Onset (ago): day(s) (2) Location: LLE and L foot Severity: mild Quality: other (itchy ) Pain Consistency: constant Relieving factors: topical medication and other (Benadryl) Exacerbating factors: none Context: none Associated symptoms: denies other symptoms Treatments prior to arrival: none Related Data Previous Rx's Medication Instructions Recorded ibuprofen 600 mg tablet 600 mg PO Q6H PRN #30 tab 04/14/20 ondansetron 4 mg disintegrating 4 mg PO Q8H PRN #20 tab 04/14/20 tablet ondansetron HCl 4 mg tablet 4 mg PO Q8H PRN #10 tab 06/23/20 (Zofran) prednisone 20 mg tablet 40 mg PO DAILY 5 Days #10 tab 11/19/20 Allergies Allergy/AdvReac Type Severity Reaction Status Date / Time No Known Allergies Allergy Verified 11/18/20 23:09 Review of Systems Review of Systems: Constitutional: No Weight loss, No Fever, No Chills, No Night Sweats, No Fatigue, No Malaise ENT/Mouth: No Hearing loss, No Ear Pain, No Nasal Congestion, No Sinus Pain, No Hoarseness, No sore throat, No Rhinorrhea, No Swallowing Difficulty Eyes: No Eye Pain, No Swelling, No Redness, No Foreign Body, No Discharge, No Vision Changes Cardiovascular: No Chest Pain, No SOB, No Dyspnea on Exertion, No Orthopnea, No Edema, No Palpitations Respiratory: No Cough, No Sputum, No Wheezing, No Smoke Exposure, No Dyspnea Gastrointestinal: No Nausea, No Vomiting, No Diarrhea, No Constipation, No abdominal Pain, No Hematochezia, No Melena Genitourinary: No Dysuria, No Urinary Frequency, No Hematuria, No Urinary Incontinence, No Urgency, No Flank Pain, No Urinary Flow Changes, No Hesitancy Musculoskeletal: No joint pain, No Myalgias, No Joint Swelling Skin: No Skin Lesions, + rash Neuro: No Weakness, No Numbness, No Paresthesias, No Loss of Consciousness, No Dizziness, No Headache Psych: No Social Issues Heme/Lymph: No Bruising, No Bleeding,No Lymphadenopathy Endocrine: No Polyuria, No Polydipsia, No Temperature Intolerance [facility] Past Medical History Medical History Asthma Social History Social History (Updated 04/13/20 @ 23:00 by Kristine Doss DO) Alcohol intake: never Advance Directives: No Advance Directives Information Provided: No Physical Exam Vital Signs: Vital Signs: Last Vital Signs Temp 99.0 F 11/18/20 23:04 Pulse 79 11/18/20 23:04 Resp 16 11/18/20 23:04 BP 119/65 11/18/20 23:04 Pulse Ox 98 11/18/20 23:04 Body Mass Index 32.3 Const: General: cooperative and healthy appearing; No acute distress or intoxicated appearing Nutritional Appearance: average body habitus Orientation/consciousness: patient oriented x3 HENMT: Head: Yes normal to inspection Ears: hearing grossly normal bilaterally Eyes: General: appearance normal, both eyes and all related structures Visual Alfaro: normal visual alfaro by confrontation Neck: Neck: Yes normal visual inspection, No positive Brudzinski's sign, No positive Kernig's sign and No tender Thyroid: Thyroid normal Chest: Chest palpation & inspection: normal inspection of the chest Resp: Effort & Inspection: normal respiratory effort Auscultation: clear to auscultation bilaterally Cardio: Jugular venous distension: no JVD Rhythm: regular rhythm Heart sounds: S1 normal heart sound present and S2 normal heart sound present GI: Inspection: Yes normal to inspection Percussion: Yes normal to percussion Auscultation: normal bowel sounds : General: Yes no CVA tenderness Back/Spine/Pelvis: Back: no CVA tenderness Skin: General skin exam: no rashes or lesions noted Rashes: rashes noted urticaria diffuse dorsal foot Trauma: no lacerations or abrasions Neuro: General: patient oriented x3 Extrem: General: Yes normal to inspection Course Reevaluation(s) Reevaluation #1: Consistent with dermatitis fluticasone made worse with. This will give a course of systemic steroids and advised to use Benadryl. For no recent antibiotics suggest Fox-Apollo, no signs symptoms of infection. Discharge Plan Discharge Clinical Impression: Dermatitis Patient Disposition: Home, Self-Care Instructions: Dermatitis (ED) Additional Instructions: Please stop using betamethasone Take your prescribed medications Return if any concerns or worsening symptoms Thank you Prescriptions: New prednisone 20 mg tablet 40 mg PO DAILY 5 Days Qty: 10 RF: 0 No Action ibuprofen 600 mg tablet 600 mg PO Q6H PRN (Reason: pain) Qty: 30 RF: 0 ondansetron 4 mg tablet,disintegrating 4 mg PO Q8H PRN (Reason: nausea and vomiting) Qty: 20 RF: 0 ondansetron HCl [Zofran] 4 mg tablet 4 mg PO Q8H PRN (Reason: nausea and vomiting) Qty: 10 RF: 0 Referrals: ED Physician,Generic [Emergency Provider] - 2 days
[2020-11-19] MEDS: diphenhydrAMINE HCL 25 MG TABLET 50 MG PO (01:06)
[2020-11-19] MEDS: predniSONE 20 MG TABLET 60 MG PO (01:09)
== END 2020-11-19 01:10 | disposition home or self-care (01) ==
PROVIDERS: Emergency Provider Student in an Organized Health Care Education/Training Program; PCP Pediatrics
DX: L30.9 Dermatitis, unspecified (principal); Z79.899 Other long term (current) drug therapy
CPT/HCPCS: 99283; Q0163

== ENCOUNTER 2022-03-05 09:34 | Emergency (ER) | payer OTHER, SELFPAY ==
[2022-03-05 10:06] VITALS: BP 126/66; PULSE 118; RESP 20; TEMP 38.3; O2SAT 97; BMI 32.3
[2022-03-05 10:42] LABS: COVID-19 Test Negative (Negative); IDNOW Serial# 16C4AD1C
[2022-03-05 10:52] LABS: IDNOW Serial# BCCEAD1C; Influenza A Positive (Negative); Influenza B2 Negative (Negative)
[2022-03-05 12:07] VITALS: TEMP 36.4
--- NOTE | 2022-03-05 12:16 | ED.URI ---
HPI - URI/Sore Throat General Chief Complaint: Upper Respiratory Symptoms Stated Complaint: Runny Nose Sore Throat Time Seen by Provider: 03/05/22 11:54 Source: patient Mode of arrival: ambulatory Limitations: no limitations History of Present Illness HPI Narrative: 21-year-old female who is currently 23 weeks being followed by Ob presenting to the ER with complaints of URI complaints which include fevers, chills, fatigue, malaise, nasal congestion/rhinorrhea and intermittent dry cough for the past 2-3 days. She reports that over the past 2 days she did have some nausea/vomiting although today she was able to tolerate water and S2 without any episodes of vomiting. She denies any dizziness, neck pain/stiffness, trouble swallowing or breathing, chest pain or shortness of breath, ear pain, sore throat, palpitations, abdominal pain, back pain, flank pain, decreased movement, vaginal bleeding, abnormal vaginal discharge, lower extremity edema or calf tenderness, dysuria rashes or any other symptoms complaints or concerns at this time. MD elicited complaint: fever, cough, rhinorrhea and nasal congestion Onset (ago): day(s) (2) Consistency: constant Severity: mild Description of mucous: clear and watery Able to tolerate fluids by mouth: Yes Exacerbating factors: nothing Relieving factors: nothing Associated symptoms: fever, chills, myalgias, headache, rhinorrhea, nasal congestion and cough Treatments prior to arrival: acetaminophen Related Data Previous Rx's Medication Instructions Recorded ibuprofen 600 mg tablet 600 mg PO Q6H PRN pain #30 tabs 04/14/20 ondansetron 4 mg disintegrating 4 mg PO Q8H PRN nausea and 04/14/20 tablet vomiting #20 tabs ondansetron HCl 4 mg tablet 4 mg PO Q8H PRN nausea and 06/23/20 (Zofran) vomiting #10 tabs prednisone 20 mg tablet 40 mg PO DAILY 5 days #10 tabs 11/19/20 acetaminophen 500 mg tablet 1,000 mg PO QID PRN fever or pain 03/05/22 (Tylenol Extra Strength) #14 tabs albuterol sulfate 90 mcg/actuation 1 inh inhalation QID PRN shortness 03/05/22 aerosol inhaler of breath or wheezing #8.5 grams Allergies Allergy/AdvReac Type Severity Reaction Status Date / Time No Known Allergies Allergy Verified 11/18/20 23:09 Review of Systems Review of Systems: Constitutional : + fever/chills/fatigue/malaise, No Weight loss ENT/Mouth : No Hearing loss, No Ear Pain, + Nasal Congestion, No Sinus Pain, No Hoarseness, + sore throat, + Rhinorrhea, No Swallowing Difficulty Eyes: No Eye Pain, No Swelling, No Redness, No Foreign Body, No Discharge, No Vision Changes Cardiovascular : No Chest Pain, No SOB, No Dyspnea on Exertion, No Orthopnea, No Edema, No Palpitations Respiratory : + Cough, No Sputum, No Wheezing, No Smoke Exposure, No Dyspnea Gastrointestinal : + Nausea, + Vomiting, No Diarrhea, No Constipation, No abdominal Pain, No Hematochezia, No Melena Genitourinary : no irregular bleeding, No Dysuria, No Urinary Frequency, No Hematuria, No Urinary Incontinence, No Urgency, No Flank Pain, No Urinary Flow Changes, No Hesitancy Musculoskeletal : No joint pain, + Myalgias, No Joint Swelling Skin : No Skin Lesions, No rash Neuro : No Weakness, No Numbness, No Paresthesias, No Loss of Consciousness, No Dizziness, No Headache Psych : No Anxiety/Panic, No Depression, No SI/HI/AH/VH, No Social Issues, Heme/Lymph: No Bruising, No Bleeding,No Lymphadenopathy Endocrine : No Polyuria, No Polydipsia, No Temperature Intolerance Yes all other systems are reviewed and are negative [facility] Past Medical History Attestation statement: The following information was validated with the patient. Source: old records reviewed and nursing notes reviewed Medical History Asthma Social History Social History Alcohol intake: never Advance Directives: No Physical Exam Vital Signs: Vital Signs: Last Vital Signs Temp 97.6 F 03/05/22 12:07 Pulse 118 H 03/05/22 10:06 Resp 20 03/05/22 10:06 BP 126/66 03/05/22 10:06 Pulse Ox 97 03/05/22 10:06 O2 Del Method 03/05/22 10:06 BMI result Body Mass Index 32.3 vital signs have been reviewed as normal and appeared to be correct. Blood pressure normal. Heart rate 118. Respiration rate normal. Temperature 100.9. Oxygen saturation normal. Appearance: Alert. Oriented X3. No acute distress. Head: Normal external exam. Normocephalic. Atraumatic. Eyes: PERRLA. EOMI. Conjunctiva and sclera normal. Eyelids normal. ENT: EAC normal. TM's Normal. Pharynx normal. Uvula midline. Moist mucous membranes. No lesions/ulcerations or masses noted on the tongue. Normal voice. No trismus noted. No drooling noted. No muffled voice noted. Neck: Normal inspection. Neck supple. FROM. No adenopathy. Thyroid Normal. No tracheal deviation noted. No crepitus is noted. No meningeal signs. No neck mass noted. No signs of trauma noted. CVS: Normal heart rate and rhythm. Heart sound normal. Pulses normal throughout. No murmurs/rales/gallops. Respiratory: No respiratory distress. Painless inspiration. Breath sounds normal. No wheezes/rales/rhonchi noted. Chest nontender. No crepitus is noted. No accessory muscle usage noted or decreased air movement noted. No signs of trauma. Abdomen: Soft and nontender. Nondistended. No guarding. No rigidity. Bowel sounds normal in all 4 quadrants. No distention noted. No organomegaly noted. No visible injury noted. No rebound tenderness. Negative Rovsing sign. Negative obturator's sign. Negative psoas sign. Negative Nguyen sign. Gravid uterus consistent with dates. Back: No CVA tenderness. Full range of motion noted. Nontender. No signs of trauma. Patient neuro intact bilaterally and distally on all 4 extremities. Patient's reflexes intact bilaterally and distally on all 4 extremities. No rashes/lesion/induration/fluctuance or signs of infection noted. Skin: Skin warm and dry. Normal skin color. Normal skin turgor. No rashes/lesions/lacerations noted. Extremities: Extremities exhibit normal range of motion and nontender. Neuro: Oriented X 3. No motor deficit. No sensory deficit. Normal steady gait. No focal neuro deficits noted. CN's II-XII intact bilaterally? Vascular: + radial pulses/+ 2 distal pedal pulses/+2 dorsalis pedis b/l. Normal cap refill. No cyanosis noted to upper extremity nails and lower extremity toes nails. Course Course Course Narrative: Patient positive for influenza A. Negative for COVID. heart tones within normal limits. She denies any mgmt analyst complaints. Therefore at this time no additional labs or imaging indicated. Will DC home with Tylenol her albuterol and instructed patient to call her PCP and OBGYN and to return if any new or worsening symptoms. Patient understands agrees with this plan. Medications Administered Discontinued Medications Generic Name Dose Route Start Last Admin Trade Name Freq PRN Reason Stop Dose Admin Acetaminophen 650 mg 03/05/22 10:09 03/05/22 10:13 Acetaminophen Child Oral Susp 160 Mg/5 Ml Oral.Susp PO 03/05/22 10:10 650 mg ONCE ONE Administration MDM - URI/Sore Throat Medical Records Attestation: I reviewed the patient's medical records. Lab Data Attestation: I reviewed the patient's lab results. Labs: Lab Results 03/05/22 03/05/22 Range/Units 10:19 10:19 COVID-19 (RAVI) Negative (Negative) COVID-19 Clin Com See Note Influenza Type A (LILIA) Positive A (Negative) Influenza Type B (LILIA) Negative (Negative) Influenza A & B Note See Note Discharge Plan Discharge Clinical Impression: Influenza A Patient Disposition: Home, Self-Care Instructions: Influenza (ED) Prescriptions: New acetaminophen [Tylenol Extra Strength] 500 mg tablet 1,000 mg PO QID PRN (Reason: fever or pain) Qty: 14 0RF albuterol sulfate 90 mcg/actuation HFA aerosol inhaler 1 inh inhalation QID PRN (Reason: shortness of breath or wheezing) Qty: 8.5 0RF No Action prednisone 20 mg tablet 40 mg PO DAILY 5 Days Qty: 10 0RF ibuprofen 600 mg tablet 600 mg PO Q6H PRN (Reason: pain) Qty: 30 0RF ondansetron 4 mg tablet,disintegrating 4 mg PO Q8H PRN (Reason: nausea and vomiting) Qty: 20 0RF ondansetron HCl [Zofran] 4 mg tablet 4 mg PO Q8H PRN (Reason: nausea and vomiting) Qty: 10 0RF Referrals: Physician,None [Primary Care Provider] - (your pcp) Stand Alone Forms: Work/School Release Print Language: Canadian
== END 2022-03-05 12:54 | disposition home or self-care (01) ==
PROVIDERS: Emergency Provider Emergency Medicine
DX: J10.1 Influenza due to other identified influenza virus with other respiratory manifestations (principal); R51.9 Headache, unspecified; R50.9 Fever, unspecified; R05.9 Cough, unspecified; Z20.822 Contact with and (suspected) exposure to COVID-19
CPT/HCPCS: 87502; 87635; 99283

== ENCOUNTER 2022-08-20 11:01 | Emergency (ER) | payer OTHER, SELFPAY ==
--- NOTE | ~2022-08-20 | US_ITS ---
EXAMINATION: US DIAGNOSTIC ULTRASOUND BREAST, LEFT CLINICAL INFORMATION: 21-year-old female in ER with left breast pain, some redness and swelling. No prior breast imaging. COMPARISON: None (current study represents initial baseline exam). TECHNIQUE: Ultrasound of the left breast is performed, targeted to the areas of clinical concern retroareolar and periareolar breast and lower outer quadrant. Grayscale imaging and color Doppler are performed without and with harmonics. FINDINGS: The submitted images demonstrate retroareolar duct ectasia and hyperemia on color Doppler. There is no focal skin thickening or intradermal abscess or edema tracking in the deep dermis. No three-dimensional fluid collection is appreciated. US/US breast LT complete IMPRESSION: - Mild retroareolar duct ectasia and hyperemia anterior left breast. - No definite focal three-dimensional abscess appreciated. ASSESSMENT: BI-RADS 3: Probably Benign RECOMMENDATION: -Patient should be managed based on the clinical impression. -Recommend short interval follow-up ultrasound if clinically indicated.
[2022-08-20 11:28] VITALS: BP 113/57; PULSE 94; RESP 18; TEMP 37.2; O2SAT 97; BMI 30.7
--- NOTE | 2022-08-20 11:29 | ED.GENADULT ---
HPI - General Adult General Chief complaint: Wound/Laceration Stated complaint: Lump Left Breast Time Seen by Provider: 08/20/22 12:15 Source: patient Mode of arrival: ambulatory Limitations: no limitations History of Present Illness HPI narrative: Patient is a 21-year-old female presenting with painful mass to left breast since Friday. She reports initially she felt some discomfort and then later in the day noted the mass. She denies any fevers or malaise. Denies any drainage or discharge from nipple. She recently gave around one month ago and has not breastfed or pumped since. This is her first . She has not contacted her DRUG SAFETY SPECIALIST. Related Data Previous Rx's Medication Instructions Recorded ibuprofen 600 mg tablet 600 mg PO Q6H PRN pain #30 tabs 04/14/20 ondansetron 4 mg disintegrating 4 mg PO Q8H PRN nausea and 04/14/20 tablet vomiting #20 tabs ondansetron HCl 4 mg tablet 4 mg PO Q8H PRN nausea and 06/23/20 (Zofran) vomiting #10 tabs prednisone 20 mg tablet 40 mg PO DAILY 5 days #10 tabs 11/19/20 acetaminophen 500 mg tablet 1,000 mg PO QID PRN fever or pain 03/05/22 (Tylenol Extra Strength) #14 tabs albuterol sulfate 90 mcg/actuation 1 inh inhalation QID PRN shortness 03/05/22 aerosol inhaler of breath or wheezing #8.5 grams cephalexin 500 mg capsule 500 mg PO QID #40 caps 08/20/22 doxycycline hyclate 100 mg capsule 100 mg PO BID #20 caps 08/20/22 Allergies Allergy/AdvReac Type Severity Reaction Status Date / Time No Known Allergies Allergy Verified 08/20/22 11:31 Review of Systems Review of Systems: As per HPI Yes all other systems are reviewed and are negative Constitutional: Constitutional: Reports as per HPI [facility] Past Medical History Medical History Asthma Social History Social History Alcohol intake: never Advance Directives: No Physical Exam ED Vital Signs: Vital Signs - 24 hr 08/20/22 11:28 Temperature 99.0 F Pulse Rate 94 Respiratory Rate 18 Blood Pressure 113/57 L Pulse Oximetry 97 Oxygen Delivery Method Nasal Cannula BMI result Body Mass Index 30.7 Const General: cooperative, healthy appearing and no acute distress Orientation/consciousness: oriented to person, oriented to place, oriented to time and patient oriented x3 Limitations: no limitations HENMT Head: Yes normocephalic and Yes atraumatic Ears: external ears normal General nose exam: Normal external nose present Face and sinus: Yes face symmetric Mouth: oropharynx normal and moist mucous membranes Throat: Yes uvula midline Eyes Pupils: Equal, round and reactive pupils present Neck Neck: Yes normal visual inspection and Yes supple Chest Other: Chaperoned by Soco Reddy RN. Breast/axilla palpation: normal palpation of the axillae, no axillary lymphadenopathy and abnormal palpation of the breast left mass, tenderness and areola normal; Negative for nipple discharge Chest/axillae images: 1. tender mass Resp Effort & Inspection: normal respiratory effort and able to speak in complete sentences Auscultation: clear to auscultation bilaterally Cardio Rate: regular rate Rhythm: regular rhythm Heart sounds: S1 normal heart sound present and S2 normal heart sound present GI Palpation (GI): Soft to palpation and nontender Auscultation: normoactive bowel sounds General: Yes no CVA tenderness Back/Spine/Pelvis Back: no CVA tenderness Skin General skin exam: elasticity normal and turgor normal Neuro General: oriented to person, oriented to place, oriented to time, patient oriented x3, moves all extremities, no focal motor deficits and CN's II-XI intact bilaterally Cranial nerves: Yes Equal, round and reactive pupils present Cognition (Neuro): normal cognition Extrem General: Yes full ROM, Yes no pedal edema and Yes no calf tenderness Psych Mental Status: mental status grossly normal Affect: normal affect Thought process: Normal thought process present Course Course Course Narrative: RME - 21 y/o F, with a hx of asthma, presenting to the ER for evaluation of left breast pain since friday. She reports hardness near her left nipple, no nipple drainage or discharge. No trauma or injury. No overlying redness or rashes. She gave 1 month ago, has not pumped or breast fed since the delivery. No fevers or chills. Unable to perform examination in triage due to privacy. VSS. Stable to return back to the waiting room. Plan: Left breast US ordered Medical Decision Making Medical Decision Making [facility] Narrative: Patient is a 21-year-old female presenting with painful mass to left breast since Friday. On exam patient is nontoxic appearing, VS WNL, afebrile, tender mass to left breast lateral to nipple without erythema or calor. Concern for mastitis or blocked milk duct given that patient is post . Also concern for malignancy/breast CA. Unlikely tuberculosis, granulomatosis with polyangiitis, histoplasmosis or sarcoidosis. Plan: ultrasound Ultrasound findings are consistent with mastitis. Will discharge patient home on keflex and doxycycline, advised warm compresses several times daily. Instructed patient to follow up with PCP or DRUG SAFETY SPECIALIST. Return precautions discussed at bedside. Differential Diagnosis As above. Independent Interpretation I performed an independent interpretation of an: Ultrasound Interpretation: I independently reviewed the ultrasound and agree with the radiologist's interpretation. Radiology Impression Discussion of test interpretation with radiology: I have reviewed the radiologist's reading. Radiologist Impression: FINDINGS: The submitted images demonstrate retroareolar duct ectasia and hyperemia on color Doppler. There is no focal skin thickening or intradermal abscess or edema tracking in the deep dermis. No three-dimensional fluid collection is appreciated. US/US breast LT complete IMPRESSION: - Mild retroareolar duct ectasia and hyperemia anterior left breast. - No definite focal three-dimensional abscess appreciated. ? ASSESSMENT:? BI-RADS 3: Probably Benign ? RECOMMENDATION: -Patient should be managed based on the clinical impression. ? -Recommend short interval follow-up ultrasound if clinically indicated. External Record Review External record reviewed: Inpatient record, Office record and Outpatient record Prescription Management I considered prescription management with: Antibiotic Discharge Plan Discharge Clinical Impression: Acute mastitis of left breast Patient Disposition: Home, Self-Care Instructions: Mastitis (ED) Additional Instructions: You are being prescribed antibiotics for your mastitis. Please complete the full course of antibiotics as prescribed. You should also apply warm compresses to your breast for 10-15 minutes at a time several times daily. Please schedule a follow-up appointment with your primary care provider or DRUG SAFETY SPECIALIST within two days. return to the emergency department if you experience recurrent vomiting, fevers greater than 100.4? F, new redness or warmth to the area, drainage or discharge from the area, increased swelling or any other concerning symptoms. Prescriptions: New cephalexin 500 mg capsule 500 mg PO QID Qty: 40 0RF doxycycline hyclate 100 mg capsule 100 mg PO BID Qty: 20 0RF No Action prednisone 20 mg tablet 40 mg PO DAILY 5 Days Qty: 10 0RF ibuprofen 600 mg tablet 600 mg PO Q6H PRN (Reason: pain) Qty: 30 0RF ondansetron 4 mg tablet,disintegrating 4 mg PO Q8H PRN (Reason: nausea and vomiting) Qty: 20 0RF ondansetron HCl [Zofran] 4 mg tablet 4 mg PO Q8H PRN (Reason: nausea and vomiting) Qty: 10 0RF acetaminophen [Tylenol Extra Strength] 500 mg tablet 1,000 mg PO QID PRN (Reason: fever or pain) Qty: 14 0RF albuterol sulfate 90 mcg/actuation HFA aerosol inhaler 1 inh inhalation QID PRN (Reason: shortness of breath or wheezing) Qty: 8.5 0RF Interventions: ED Discharge Assessment Last Done: 08/20/22 13:24 Discharge Date/Time: 08/20/22 13:24
--- NOTE | 2022-08-20 12:15 | PC.NURSE ---
pt ambualtory to exam room, changed into hospital attire pt sts that her breast has beome more painful since Friday when she first noticed the painful lump in breast
== END 2022-08-20 13:24 | disposition home or self-care (01) ==
PROVIDERS: Emergency Provider Student in an Organized Health Care Education/Training Program
DX: N61.0 Mastitis without abscess (principal)
CPT/HCPCS: 76641; 99283; 99284